=== PATIENT | female | born 2000 | race Caucasian/White ===

== ENCOUNTER 2020-02-29 01:26 | Emergency (ER) | payer MEDICAID ==
[~2020-02-29] VITALS: Ht 167.6 cm; Wt 58.1 kg
[2020-02-29 01:31] VITALS: BP 127/86
--- NOTE | 2020-02-29 01:36 | NUR ---
PT TAKEN TO BED 12 VIA WHEELCHAIR.
--- NOTE | 2020-02-29 01:39 | NUR ---
PT AMBULATED TO RESTROOM WITH STEADY GAIT.
--- NOTE | 2020-02-29 01:42 | NUR ---
19 Y/O FEMALE C/O PELVIC PAIN ACCOMPANIED BY VOMITING TWICE X 1 DAY. PT STATES 8/10 INTERMITTENT STABBING PAIN SINCE 2199 TODAY. PT ALSO TOOK PLAN B PILL TODAY. ABD SOFT, PAIN UPON PALPATION. LUNGS SOUNDS CLA. MHX: KIDNEY STONES, GONORRHEA ALLERGIES: LATEX
--- NOTE | 2020-02-29 01:42 | NUR ---
DR. NGUYEN AT BEDSIDE EVALUATING PT.
--- NOTE | 2020-02-29 02:05 | NUR ---
LAB AT BEDSIDE
[2020-02-29 02:11] LABS: BASOPHILS # (AUTO) 0.1 K/uL (0.00-0.22); BASOPHILS % (AUTO) 0.5 % (0.0-2.0); EOSINOPHILS # (AUTO) 0.1 K/uL (0-0.4); EOSINOPHILS % (AUTO) 1.1 % (0.0-4.0); HEMATOCRIT 42.8 % (36-48); HEMOGLOBIN 14.5 g/dL (12.0-16.0); LYMPHOCYTES # (AUTO) 2.2 K/uL (2.5-16.5); LYMPHOCYTES % (AUTO) 20.7 % (20.5-51.1); MEAN CORPUSCULAR HEMOGLOBIN 30 pg (27-31); MEAN CORPUSCULAR HGB CONC 34 g/dL (33-37); MEAN CORPUSCULAR VOLUME 89.9 fL (80-94); MONOCYTES # (AUTO) 0.7 K/uL (0.8-1.0); MONOCYTES % (AUTO) 6.3 % (1.7-9.3); NEUTROPHILS # (AUTO) 7.5 K/uL (1.8-7.7); NEUTROPHILS % (AUTO) 71.4 % (42.2-75.2); PLATELET COUNT (AUTO) 263 K/uL (140-450); RED BLOOD CELL COUNT(AUTO) 4.76 MIL/uL (4.20-5.40); RED CELL DISTRIBUTION WIDTH 12.6 % (11.6-13.7); WHITE BLOOD COUNT (AUTO) 10.5 K/uL (4.5-11.0)
[2020-02-29 02:28] LABS: APPEARANCE,URINE CLEAR (CLEAR); BILIRUBIN,URINE 1+ (NEGATIVE); BLOOD, URINE 1+ (NEGATIVE); COLOR,URINE YELLOW (YELLOW); LEUKOCYTE ESTERASE ,URINE TRACE (NEGATIVE); NITRITE, URINE NEGATIVE (NEGATIVE); UGLUCOSE NEGATIVE (NEGATIVE)
[2020-02-29 02:41] LABS: ALBUMIN 4.5 g/dL (3.4-5.0); ANION GAP 15.2 (8-16); CREATININE 0.7 mg/dL (0.6-1.3); POTASSIUM 4.2 mmol/L (3.5-5.1); TOTAL BILIRUBIN 0.3 mg/dL (0.0-1.0)
[2020-02-29 02:51] LABS: RBC,URINE NONE SEEN /HPF (0-5); WBC,URINE 0-5 /HPF (0-5)
--- NOTE | 2020-02-29 03:22 | NUR ---
PT TAKEN TO CT VIA W/C.
--- NOTE | 2020-02-29 03:33 | NUR ---
PT RETURNED FROM CT SCAN VIA W/C
[2020-02-29 04:22] VITALS: BP 127/86
[2020-03-03 06:17] LABS: CHLAMYDIA TRACHOMATIS AMP DNA Negative (Negative)
== END 2020-02-29 04:22 | disposition home or self-care (01) ==
LOC: MED 01:26
DX: N39.0 Urinary tract infection, site not specified (principal); R11.10 Vomiting, unspecified; Z91.040 Latex allergy status
CPT/HCPCS: 36415; 80053; 81001; 81025; 85025; 99284

== ENCOUNTER 2020-10-27 22:33 | Emergency (ER) | payer SELFPAY ==
[~2020-10-27] VITALS: Ht 167.6 cm; Wt 62.7 kg
[2020-10-27 22:38] VITALS: BP 117/74
--- NOTE | 2020-10-27 22:38 | NUR ---
TO BED AMBULATORY
--- NOTE | 2020-10-27 22:45 | NUR ---
PT. IS 20 Y/O THAT CAME INTO ED WITH C/O OF VOMITING AND LOWER ABDOMINAL PAIN. SHE STATES THAT HER PAIN IS 5/10 OF NOW AND WHEN VOMITTING 6/10. SKIN IS PINK/WARM/DRY; AAOX4 WITH EVEN AND STEADY GAIT; HR EVEN AND REGULAR; PT DENIES ANY FEVER, CP, SOB, OR COUGH AT THIS TIME; PATIENT POSITIONED FOR COMFORT; HOB ELEVATED; BEDRAILS UP X2; BED DOWN. ER MD MADE AWARE OF PT STATUS. PMH: KIDNEY STONES (2018), UTI (SEPTEMBER 2020) ALLERGIES: LATEX
--- NOTE | 2020-10-27 23:10 | NUR ---
Dr. Haines examining patiet.
--- NOTE | 2020-10-27 23:19 | NUR ---
Thuan lopez in [facility] - 10/27/20 at 2324 by DEMI X-Ray at bedside.
[2020-10-27] MEDS ORDERED: ONDANSETRON 4 MG ODT PO ONE (23:30)
[2020-10-27 23:32] LABS: BASOPHILS # (AUTO) 0.2 K/uL (0.00-0.22); BASOPHILS % (AUTO) 1.8 % (0.0-2.0); EOSINOPHILS # (AUTO) 0.1 K/uL (0-0.4); EOSINOPHILS % (AUTO) 0.7 % (0.0-4.0); HEMATOCRIT 43.7 % (36-48); HEMOGLOBIN 14.5 g/dL (12.0-16.0); LYMPHOCYTES # (AUTO) 1.8 K/uL (2.5-16.5); LYMPHOCYTES % (AUTO) 13.4 % (20.5-51.1); MEAN CORPUSCULAR HEMOGLOBIN 30 pg (27-31); MEAN CORPUSCULAR HGB CONC 33 g/dL (33-37); MEAN CORPUSCULAR VOLUME 89.2 fL (80-94); MONOCYTES # (AUTO) 0.9 K/uL (0.8-1.0); MONOCYTES % (AUTO) 6.6 % (1.7-9.3); NEUTROPHILS # (AUTO) 10.3 K/uL (1.8-7.7); NEUTROPHILS % (AUTO) 77.5 % (42.2-75.2); PLATELET COUNT (AUTO) 285 K/uL (140-450); RED CELL DISTRIBUTION WIDTH 12.7 % (11.6-13.7); WHITE BLOOD COUNT (AUTO) 13.2 K/uL (4.5-11.0)
--- NOTE | 2020-10-27 23:44 | NUR ---
Ultrasound at bedside.
[2020-10-27 23:47] LABS: ALBUMIN 4.3 g/dL (3.4-5.0); ANION GAP 15.1 (8-16); CARBON DIOXIDE 26.5 mmol/L (21-32); CREATININE 0.7 mg/dL (0.6-1.3); POTASSIUM 3.6 mmol/L (3.5-5.1); TOTAL BILIRUBIN 0.6 mg/dL (0.0-1.0)
[2020-10-28] MEDS ORDERED: ONDA-24 PO (01:06)
[2020-10-28 01:17] VITALS: BP 117/74
--- NOTE | 2020-10-28 01:17 | NUR ---
Patient discharged with v/s stable. Written and verbal after care instructions given and explained. Patient alert, oriented and verbalized understanding of instructions. Ambulatory with steady gait. All questions addressed prior to discharge. ID band removed. Patient advised to follow up with PMD. Rx of ONDASTERON given. Patient educated on indication of medication including possible reaction and side effects. Opportunity to ask questions provided and answered.
== END 2020-10-28 01:17 | disposition home or self-care (01) ==
LOC: MED 22:33
DX: O21.8 Other vomiting complicating pregnancy (principal); O26.891 Other specified pregnancy related conditions, first trimester; R10.2 Pelvic and perineal pain; Z3A.01 Less than 8 weeks gestation of pregnancy; Z79.899 Other long term (current) drug therapy; Z91.040 Latex allergy status; Z87.442 Personal history of urinary calculi
CPT/HCPCS: 36415; 76801; 80053; 81002; 81025; 84702; 85025; 99284; Q0162

== ENCOUNTER 2020-11-01 21:15 | Emergency (ER) | payer SELFPAY ==
[~2020-11-01] VITALS: Ht 170.2 cm; Wt 57.2 kg
[~2020-11-01 21:15] MED LIST: ONDA-24 PO
[2020-11-01 21:32] VITALS: BP 117/73
--- NOTE | 2020-11-01 21:37 | NUR ---
PT TAKEN TO BED 4
--- NOTE | 2020-11-01 21:50 | NUR ---
20/F PATIENT BIB SELF FOR C/O PELVIC PAIN 12/18 SINCE THIS MORNING. PATIENT STATES HAS HAD "BRIGHT RED BLEEDING AND SPOTTING" SINCE THIS MORNING WEEL. PATIENT X 6 WEEKS . PT ALSO COMPLAINS OF NASUEA, VOMITINGX1, AND DIZZINESS. PT DENIES ANY DIARRHEA, FEVER, OR PAINFUL URINATION MED HX: UTI, KIDNEY STONES ALLERGY: LATEX, CATS
--- NOTE | 2020-11-01 22:41 | NUR ---
Dr. Bal examining patient.
[2020-11-01 23:24] LABS: BASOPHILS # (AUTO) 0.1 K/uL (0.00-0.22); BASOPHILS % (AUTO) 0.7 % (0.0-2.0); EOSINOPHILS # (AUTO) 0.1 K/uL (0-0.4); EOSINOPHILS % (AUTO) 0.7 % (0.0-4.0); HEMATOCRIT 46.3 % (36-48); HEMOGLOBIN 15.6 g/dL (12.0-16.0); LYMPHOCYTES % (AUTO) 13.1 % (20.5-51.1); MEAN CORPUSCULAR HEMOGLOBIN 30 pg (27-31); MEAN CORPUSCULAR HGB CONC 34 g/dL (33-37); MONOCYTES # (AUTO) 0.9 K/uL (0.8-1.0); MONOCYTES % (AUTO) 5.8 % (1.7-9.3); NEUTROPHILS # (AUTO) 11.9 K/uL (1.8-7.7); NEUTROPHILS % (AUTO) 79.7 % (42.2-75.2); PLATELET COUNT (AUTO) 267 K/uL (140-450); RED BLOOD CELL COUNT(AUTO) 5.14 MIL/uL (4.20-5.40); WHITE BLOOD COUNT (AUTO) 14.9 K/uL (4.5-11.0)
[2020-11-01 23:41] LABS: APPEARANCE,URINE CLEAR (CLEAR); BILIRUBIN,URINE NEGATIVE (NEGATIVE); BLOOD, URINE NEGATIVE (NEGATIVE); COLOR,URINE YELLOW (YELLOW); LEUKOCYTE ESTERASE ,URINE NEGATIVE (NEGATIVE); NITRITE, URINE NEGATIVE (NEGATIVE); UGLUCOSE NEGATIVE (NEGATIVE)
--- NOTE | 2020-11-01 23:41 | NUR ---
Ultrasound at bedside.
[2020-11-02] MEDS ORDERED: DOXY1TCP PO (01:10)
[2020-11-02 01:28] VITALS: BP 119/67
--- NOTE | 2020-11-02 01:28 | NUR ---
Patient discharged with v/s stable. Written and verbal after care instructions given and explained. Patient alert, oriented and verbalized understanding of instructions. Ambulatory with steady gait. All questions addressed prior to discharge. ID band removed. Patient advised to follow up with PMD. Rx of DICLEGIS given. Patient educated on indication of medication including possible reaction and side effects. Opportunity to ask questions provided and answered.
== END 2020-11-02 01:28 | disposition home or self-care (01) ==
LOC: MED 21:15
DX: O20.0 Threatened abortion (principal); O21.8 Other vomiting complicating pregnancy; Z3A.01 Less than 8 weeks gestation of pregnancy; Z79.899 Other long term (current) drug therapy; Z91.040 Latex allergy status; Z87.442 Personal history of urinary calculi
CPT/HCPCS: 36415; 76817; 81003; 84702; 85025; 86900; 86901; 99283

== ENCOUNTER 2020-11-15 10:00 | Emergency (ER) | payer SELFPAY ==
[~2020-11-15] VITALS: Ht 167.6 cm; Wt 57.2 kg
[~2020-11-15 10:00] MED LIST changes: +DOXY1TCP PO
[2020-11-15 10:07] VITALS: BP 105/73
[2020-11-15] MEDS ORDERED: LACTATED RINGERS 1,000 ML IV ONE (10:40)
[2020-11-15] MEDS ORDERED: NACL 0.9% 1,000 ML IV ONE (10:40)
[2020-11-15] MEDS ORDERED: diphenhydrAMINE 50 MG/ML VIAL IVP ONE (10:40)
[2020-11-15] MEDS ORDERED: METOCLOPRAMIDE 10 MG/2 ML INJ VIAL IVP ONE (10:40)
[2020-11-15 11:05] LABS: BASOPHILS % (AUTO) 0.3 % (0.0-2.0); EOSINOPHILS % (AUTO) 0.1 % (0.0-4.0); HEMATOCRIT 45.4 % (36-48); HEMOGLOBIN 15.9 g/dL (12.0-16.0); LYMPHOCYTES # (AUTO) 0.8 K/uL (2.5-16.5); LYMPHOCYTES % (AUTO) 4.8 % (20.5-51.1); MEAN CORPUSCULAR HEMOGLOBIN 30 pg (27-31); MEAN CORPUSCULAR HGB CONC 35 g/dL (33-37); MEAN CORPUSCULAR VOLUME 86.9 fL (80-94); MONOCYTES # (AUTO) 0.4 K/uL (0.8-1.0); MONOCYTES % (AUTO) 2.6 % (1.7-9.3); NEUTROPHILS # (AUTO) 14.9 K/uL (1.8-7.7); NEUTROPHILS % (AUTO) 92.2 % (42.2-75.2); PLATELET COUNT (AUTO) 280 K/uL (140-450); RED BLOOD CELL COUNT(AUTO) 5.23 MIL/uL (4.20-5.40); RED CELL DISTRIBUTION WIDTH 12.5 % (11.6-13.7); WHITE BLOOD COUNT (AUTO) 16.1 K/uL (4.5-11.0)
[2020-11-15 11:16] LABS: BILIRUBIN,URINE 1+ (NEGATIVE); BLOOD, URINE TRACE-L (NEGATIVE); COLOR,URINE ORANGE (YELLOW); LEUKOCYTE ESTERASE ,URINE TRACE (NEGATIVE); NITRITE, URINE NEGATIVE (NEGATIVE); UGLUCOSE NEGATIVE (NEGATIVE)
[2020-11-15 11:19] LABS: ALBUMIN 4.4 g/dL (3.4-5.0); ANION GAP 18.5 (8-16); CARBON DIOXIDE 23.2 mmol/L (21-32); CREATININE 0.7 mg/dL (0.6-1.3); POTASSIUM 3.7 mmol/L (3.5-5.1)
[2020-11-15 11:22] LABS: APPEARANCE,URINE HAZY (CLEAR)
[2020-11-15] MEDS ORDERED: DOXY1TCP PO (11:46)
[2020-11-15] MEDS ORDERED: NITR100C7 PO (11:46)
[2020-11-15] MEDS ORDERED: METO-485 PO (11:46)
[2020-11-15 13:47] VITALS: BP 101/62
== END 2020-11-15 13:47 | disposition home or self-care (01) ==
LOC: MED 10:00
DX: O21.8 Other vomiting complicating pregnancy (principal); O23.41 Unspecified infection of urinary tract in pregnancy, first trimester; Z3A.08 8 weeks gestation of pregnancy; Z91.040 Latex allergy status; Z79.899 Other long term (current) drug therapy; Z87.442 Personal history of urinary calculi
CPT/HCPCS: 36415; 80053; 81001; 83690; 85025; 87086; 96361; 96374; 96375; 99284; J1200; J2765; J7120; J7030

== ENCOUNTER 2020-11-28 19:59 | Inpatient (IN) | payer MEDICAID, SELFPAY ==
[~2020-11-28] VITALS: Ht 165.1 cm; Wt 56.7 kg
[~2020-11-28 19:59] MED LIST changes: +METO-485 PO; +NITR100C7 PO
[2020-11-28 20:08] VITALS: BP 140/84
[2020-11-28] MEDS ORDERED: ONDANSETRON 4 MG ODT PO ONE (20:20)
[2020-11-28] MEDS ORDERED: METOCLOPRAMIDE 10 MG/2 ML INJ VIAL IVP ONE (20:30)
[2020-11-28] MEDS ORDERED: NACL 0.9% 1,000 ML IV ONE (20:30)
[2020-11-28 21:08] LABS: BASOPHILS % (AUTO) 0.1 % (0.0-2.0); EOSINOPHILS % (AUTO) 0.1 % (0.0-4.0); HEMATOCRIT 42.8 % (36-48); HEMOGLOBIN 14.8 g/dL (12.0-16.0); LYMPHOCYTES # (AUTO) 1.2 K/uL (2.5-16.5); LYMPHOCYTES % (AUTO) 10.8 % (20.5-51.1); MEAN CORPUSCULAR HEMOGLOBIN 30 pg (27-31); MEAN CORPUSCULAR HGB CONC 35 g/dL (33-37); MEAN CORPUSCULAR VOLUME 87.7 fL (80-94); MONOCYTES % (AUTO) 8.7 % (1.7-9.3); NEUTROPHILS # (AUTO) 9.2 K/uL (1.8-7.7); NEUTROPHILS % (AUTO) 80.3 % (42.2-75.2); PLATELET COUNT (AUTO) 298 K/uL (140-450); RED BLOOD CELL COUNT(AUTO) 4.88 MIL/uL (4.20-5.40); RED CELL DISTRIBUTION WIDTH 12.7 % (11.6-13.7); WHITE BLOOD COUNT (AUTO) 11.4 K/uL (4.5-11.0)
[2020-11-28] MEDS ORDERED: PYRIDOXINE 50 MG TAB PO SCH (21:10)
[2020-11-28 21:27] LABS: BILIRUBIN,URINE 2+ (NEGATIVE); BLOOD, URINE TRACE-I (NEGATIVE); LEUKOCYTE ESTERASE ,URINE TRACE (NEGATIVE); NITRITE, URINE NEGATIVE (NEGATIVE); UGLUCOSE 2+ (NEGATIVE)
[2020-11-28 21:29] LABS: ALBUMIN 4.4 g/dL (3.4-5.0); ANION GAP 19.1 (8-16); CARBON DIOXIDE 23.2 mmol/L (21-32); CREATININE 0.8 mg/dL (0.6-1.3); POTASSIUM 3.3 mmol/L (3.5-5.1); TOTAL BILIRUBIN 1.9 mg/dL (0.0-1.0)
[2020-11-28 21:50] LABS: APPEARANCE,URINE HAZY (CLEAR); COLOR,URINE YELLOW (YELLOW)
[2020-11-28 21:51] LABS: WBC,URINE 20-60 /HPF (0-5)
[2020-11-28 21:52] LABS: CALCIUM OXALATE CRYSTALS,UR 0-2 /HPF (None Seen)
[2020-11-28] MEDS ORDERED: ONDANSETRON 4 MG/2 ML VIAL IVP ONE (23:25)
[2020-11-29] MEDS ORDERED: METOCLOPRAMIDE 10 MG/2 ML INJ VIAL IVP PRN ×2 (00:35→12:15)
[2020-11-29] MEDS ORDERED: NACL 0.9% 1,000 ML IV ONE (00:35)
[2020-11-29] MEDS ORDERED: cefTRIAXone 1,000 MG VIAL ONE (00:42)
[2020-11-29 00:55] LABS: BARBITURATE, URINE NEGATIVE ng/ml (NEG <=200); BENZODIAZEPINE, URINE NEGATIVE ng/mL (NEG <=200); CANNABINOID, URINE NEGATIVE ng/mL (NEG <=50); COCAINE, URINE NEGATIVE ng/mL (NEG <=300); OPIATE, URINE NEGATIVE ng/mL (NEG <=2000); PHENCYCLIDINE SCREEN,URINE NEGATIVE ng/mL (NEG <=25)
[2020-11-29 02:20] VITALS: BP 105/67
[2020-11-29 04:00] VITALS: BP 117/70
[2020-11-29 08:00] VITALS: BP 143/99
[2020-11-29] MEDS ORDERED: INSULIN LISPRO SLIDING SCALE 100 UNITS/ML VIAL SUBQ PRN (09:20)
[2020-11-29] MEDS ORDERED: ONDANSETRON 4 MG/2 ML VIAL IM/IVP PRN (09:20)
[2020-11-29] MEDS ORDERED: DOCUSATE SODIUM 100 MG GELCAP PO PRN (09:20)
[2020-11-29] MEDS ORDERED: ACETAMINOPHEN 325 MG TAB PO PRN (09:20)
[2020-11-29] MEDS ORDERED: DEXTROSE 50% 50 ML SYR IVP PRN (09:20)
[2020-11-29] MEDS: NACL 0.9% 1,000 ML IV SCH ×2 (09:20→18:37)
[2020-11-29] MEDS ORDERED: MAG SULF 2000 MG/WATER PREMIX 50 ML IV PRN (09:20)
[2020-11-29 11:19] LABS: BASOPHILS % (AUTO) 0.4 % (0.0-2.0); EOSINOPHILS # (AUTO) 0.1 K/uL (0-0.4); HEMATOCRIT 38.7 % (36-48); HEMOGLOBIN 13.5 g/dL (12.0-16.0); LYMPHOCYTES # (AUTO) 1.7 K/uL (2.5-16.5); LYMPHOCYTES % (AUTO) 19.2 % (20.5-51.1); MEAN CORPUSCULAR HEMOGLOBIN 31 pg (27-31); MEAN CORPUSCULAR HGB CONC 35 g/dL (33-37); MEAN CORPUSCULAR VOLUME 87.9 fL (80-94); MONOCYTES # (AUTO) 0.8 K/uL (0.8-1.0); MONOCYTES % (AUTO) 9.3 % (1.7-9.3); NEUTROPHILS # (AUTO) 6.3 K/uL (1.8-7.7); NEUTROPHILS % (AUTO) 70.1 % (42.2-75.2); PLATELET COUNT (AUTO) 262 K/uL (140-450); RED BLOOD CELL COUNT(AUTO) 4.41 MIL/uL (4.20-5.40); RED CELL DISTRIBUTION WIDTH 12.6 % (11.6-13.7); WHITE BLOOD COUNT (AUTO) 9.1 K/uL (4.5-11.0)
[2020-11-29 11:32] LABS: ANION GAP 11.8 (8-16); CARBON DIOXIDE 25.3 mmol/L (21-32); CREATININE 0.6 mg/dL (0.6-1.3); POTASSIUM 3.1 mmol/L (3.5-5.1)
[2020-11-29 11:45] LABS: CHOL/HDL RATIO 3.3 (1-4.5); MAGNESIUM 1.9 mg/dL (1.8-2.4); PHOSPHORUS 3.4 mg/dL (2.5-4.9); THYROID STIMULATING HORMONE 2.1 uIU/mL (0.34-3.74)
[2020-11-29] MEDS: POTASSIUM CHLORIDE 10 MEQ TABER PO PRN (11:55)
[2020-11-29] MEDS: BLOOD GLUCOSE MONITORING 1 DEV DEV FS SCH ×3 (12:00→21:22)
[2020-11-29 12:01] LABS: PROTHROMBIN TIME 10.4 secs (10.8-13.4)
[2020-11-29] MEDS: PROMETHAZINE 25 MG/ML VIAL IVP SCH ×2 (14:50→18:29)
[2020-11-29 16:00] VITALS: BP_SYST 101; BP_SYST 117; BP_DIAS 60; BP_DIAS 70
[2020-11-29] MEDS ORDERED: DOXYLAMINE PO SCH ×2 (17:00)
[2020-11-29] MEDS ORDERED: PYRIDOXINE HCL PO SCH ×2 (17:00)
[2020-11-29] MEDS: ONDANSETRON 4 MG/2 ML VIAL IVP SCH (18:28)
[2020-11-29] MEDS: PROCHLORPERAZINE 10 MG/2 ML VIAL IVP SCH (18:29)
[2020-11-29] MEDS ORDERED: METOCLOPRAMIDE 10 MG/2 ML INJ VIAL IVP SCH (21:00)
[2020-11-29] MEDS: METOCLOPRAMIDE 10 MG/2 ML INJ VIAL IVP SCH (21:23)
[2020-11-30] VITALS: BP 123/79
[2020-11-30] MEDS: PROCHLORPERAZINE 10 MG/2 ML VIAL IVP SCH ×5 (05:04→23:18)
[2020-11-30] MEDS: PROMETHAZINE 25 MG/ML VIAL IVP SCH ×5 (05:05→23:18)
[2020-11-30] MEDS: ONDANSETRON 4 MG/2 ML VIAL IVP SCH ×5 (05:05→23:19)
[2020-11-30 05:10] LABS: BASOPHILS % (AUTO) 0.3 % (0.0-2.0); EOSINOPHILS # (AUTO) 0.1 K/uL (0-0.4); EOSINOPHILS % (AUTO) 1.5 % (0.0-4.0); HEMATOCRIT 35.3 % (36-48); HEMOGLOBIN 12.6 g/dL (12.0-16.0); LYMPHOCYTES # (AUTO) 1.9 K/uL (2.5-16.5); LYMPHOCYTES % (AUTO) 23.4 % (20.5-51.1); MEAN CORPUSCULAR HEMOGLOBIN 31 pg (27-31); MEAN CORPUSCULAR HGB CONC 36 g/dL (33-37); MEAN CORPUSCULAR VOLUME 87.4 fL (80-94); MONOCYTES # (AUTO) 0.7 K/uL (0.8-1.0); MONOCYTES % (AUTO) 8.2 % (1.7-9.3); NEUTROPHILS # (AUTO) 5.5 K/uL (1.8-7.7); NEUTROPHILS % (AUTO) 66.6 % (42.2-75.2); PLATELET COUNT (AUTO) 202 K/uL (140-450); RED BLOOD CELL COUNT(AUTO) 4.05 MIL/uL (4.20-5.40); RED CELL DISTRIBUTION WIDTH 12.8 % (11.6-13.7); WHITE BLOOD COUNT (AUTO) 8.2 K/uL (4.5-11.0)
[2020-11-30] MEDS: NACL 0.9% 1,000 ML IV SCH ×2 (05:20→15:20)
[2020-11-30 05:28] LABS: ANION GAP 13.4 (8-16); CARBON DIOXIDE 23.4 mmol/L (21-32); CREATININE 0.6 mg/dL (0.6-1.3)
[2020-11-30 05:38] LABS: MAGNESIUM 1.8 mg/dL (1.8-2.4); PHOSPHORUS 3.8 mg/dL (2.5-4.9)
[2020-11-30 06:02] LABS: POTASSIUM 2.8 mmol/L (3.5-5.1)
[2020-11-30] MEDS: POTASSIUM CHLORIDE 10 MEQ TABER PO PRN (06:15)
[2020-11-30] MEDS: BLOOD GLUCOSE MONITORING 1 DEV DEV FS SCH ×4 (06:30→20:00)
[2020-11-30 08:00] VITALS: BP 103/51
[2020-11-30] MEDS: METOCLOPRAMIDE 10 MG/2 ML INJ VIAL IVP SCH ×2 (09:00→20:00)
[2020-11-30] MEDS ORDERED: POTASSIUM CHLORIDE 10 MEQ TABER PO SCH (12:30)
[2020-11-30] MEDS ORDERED: POTASSIUM CHLORIDE 20% 40 MEQ/15 ML UDC GT SCH (14:30)
[2020-11-30 16:00] VITALS: BP 103/69
[2020-11-30] MEDS: cephALEXin 500 MG CAP PO SCH (17:23)
[2020-11-30 20:00] VITALS: BP 104/62
[2020-11-30 20:10] LABS: T4 (THYROXINE) 13.9 ug/dL (4.5 - 12.0)
[2020-12-01] MEDS: cephALEXin 500 MG CAP PO SCH ×3 (00:10→12:20)
[2020-12-01] MEDS: NACL 0.9% 1,000 ML IV SCH ×2 (00:10→11:20)
[2020-12-01 04:00] VITALS: BP 113/77
[2020-12-01] MEDS: PROCHLORPERAZINE 10 MG/2 ML VIAL IVP SCH ×2 (05:00→12:00)
[2020-12-01] MEDS: PROMETHAZINE 25 MG/ML VIAL IVP SCH ×2 (05:01→12:00)
[2020-12-01] MEDS: ONDANSETRON 4 MG/2 ML VIAL IVP SCH ×2 (05:01→12:00)
[2020-12-01 05:41] LABS: BASOPHILS % (AUTO) 0.5 % (0.0-2.0); EOSINOPHILS # (AUTO) 0.2 K/uL (0-0.4); HEMOGLOBIN 12.5 g/dL (12.0-16.0); LYMPHOCYTES % (AUTO) 24.4 % (20.5-51.1); MEAN CORPUSCULAR HEMOGLOBIN 31 pg (27-31); MEAN CORPUSCULAR HGB CONC 35 g/dL (33-37); MEAN CORPUSCULAR VOLUME 88.8 fL (80-94); MONOCYTES # (AUTO) 0.6 K/uL (0.8-1.0); MONOCYTES % (AUTO) 7.3 % (1.7-9.3); NEUTROPHILS # (AUTO) 5.3 K/uL (1.8-7.7); NEUTROPHILS % (AUTO) 65.8 % (42.2-75.2); PLATELET COUNT (AUTO) 219 K/uL (140-450); RED BLOOD CELL COUNT(AUTO) 4.06 MIL/uL (4.20-5.40); RED CELL DISTRIBUTION WIDTH 12.7 % (11.6-13.7)
[2020-12-01 06:05] LABS: ANION GAP 16.2 (8-16); CREATININE 0.4 mg/dL (0.6-1.3); POTASSIUM 3.2 mmol/L (3.5-5.1)
[2020-12-01 06:10] LABS: MAGNESIUM 1.8 mg/dL (1.8-2.4)
[2020-12-01] MEDS: BLOOD GLUCOSE MONITORING 1 DEV DEV FS SCH ×2 (06:50→11:30)
[2020-12-01 08:00] VITALS: BP_SYST 100; BP_SYST 106; BP_DIAS 62; BP_DIAS 68
[2020-12-01] MEDS: METOCLOPRAMIDE 10 MG/2 ML INJ VIAL IVP SCH (09:00)
[2020-12-01] MEDS ORDERED: POTA10TE30 PO (09:56)
[2020-12-01] MEDS ORDERED: CEPH250C16 PO (09:56)
[2020-12-01] MEDS ORDERED: ONDA4TAB PO (09:56)
[2020-12-01 10:35] VITALS: BP 106/68
== END 2020-12-01 12:30 | disposition home or self-care (01) | DRG 566 ==
LOC: MED 19:59 → MMU 11-29 00:37 → MTU 11-29 02:44
DX: O21.0 Mild hyperemesis gravidarum (principal); O23.41 Unspecified infection of urinary tract in pregnancy, first trimester; E86.0 Dehydration; E87.6 Hypokalemia; O99.281 Endocrine, nutritional and metabolic diseases complicating pregnancy, first trimester; Z20.822 Contact with and (suspected) exposure to COVID-19; Z3A.10 10 weeks gestation of pregnancy; Z91.040 Latex allergy status
CPT/HCPCS: 36415; 76705; 80048; 80053; 80305; 81001; 82948; 83036; 83605; 83690; 83735; 83880; 84100; 84134; 84436; 84443; 84484; 84702; 85025; 85610; 85730; 87040; 87081; 87086; 87186; 96361; 96365; 96375; 99285; J0696; J0780; J1815; J2405; J2550; J2765; J7060; Q0162

== ENCOUNTER 2021-03-24 22:50 | Observation (INO) | payer MEDICAID, SELFPAY ==
[~2021-03-24 22:50] MED LIST changes: +CEPH250C16 PO; -METO-485 PO; -NITR100C7 PO; -ONDA-24 PO; +ONDA4TAB PO; +POTA10TA70 PO
== END 2021-03-24 23:20 | disposition home or self-care (01) ==
LOC: MLD 22:50
PROVIDERS: ADMIT Obstetrics & Gynecology; ATTEND Obstetrics & Gynecology
DX: O99.891 Other specified diseases and conditions complicating pregnancy (principal); M54.6 Pain in thoracic spine; O26.892 Other specified pregnancy related conditions, second trimester; R06.02 Shortness of breath; R00.0 Tachycardia, unspecified; Z3A.27 27 weeks gestation of pregnancy; Z91.040 Latex allergy status
CPT/HCPCS: G0378